=== PATIENT | female | born 1955 | race Caucasian/White ===

== ENCOUNTER → 2016-12-07 | Outpatient (CLI) | payer BC | LOC: GMAB 10:28 | PROVIDERS: ATTEND Family Medicine | DX: Z00.01 Encounter for general adult medical examination with abnormal findings (principal) ==

== ENCOUNTER 2017-04-06 05:46 | Day surgery (SDC) | payer BC ==
[2017-04-06] MEDS ORDERED: LACTATED RINGERS 1,000 ML ONE (06:14)
--- NOTE | 2017-04-06 10:18 | OP ---
DATE OF PROCEDURE: 04/06/17 PREOPERATIVE DIAGNOSIS: 1. Family history of colon cancer in her sister. 2. Previous colonoscopy was 2010. POSTOPERATIVE DIAGNOSIS: 1. Colonic polyp. 2. Internal hemorrhoids. 3. Diverticulosis. PROCEDURE: 1. Colonoscopy plus polypectomy. SURGEON: Atilio Seaman MD. COMPLICATIONS: None apparent. BLOOD LOSS: None. MEDICATIONS: Monitored anesthesia care. DESCRIPTION OF PROCEDURE: Informed consent was obtained prior to sedation. The preprocedure cardiopulmonary assessment was satisfactory. The patient was placed in the left lateral decubitus position and was sedated. A digital rectal exam was unremarkable. The tip of the Olympus colonoscope was inserted in the rectum and guided over to the cecum. The cecum was identified by locating the ileocecal valve and appendiceal orifice. Prep was good. The mucosa of the cecum, ascending colon, hepatic flexure, transverse colon, splenic flexure, descending colon and sigmoid colon was closely examined. Direct and retroflexed views of the rectum were obtained. The patient had a small rectal polyp that was removed with a cold snare and recovered. The patient has non-bleeding internal hemorrhoids. The patient has some sigmoid diverticula. Otherwise, the colonoscopy was urinalysis. RECOMMENDATIONS: 1. Followup polyp pathology. 2. Followup colonoscopy because of her family history is warranted in five years. #[id number] cc: Bebeto Preston MD MTDD
[2017-04-06] MEDS ORDERED: PROPOFOL 200 MG/20 ML VIAL IV ONE (11:00)
[2017-04-06 13:24] VITALS: BP 119/81
[2017-04-06 13:25] VITALS: TEMP 97.9; O2SAT 96
== END 2017-04-06 10:40 | disposition home or self-care (01) ==
LOC: AMB 05:46
PROVIDERS: ATTEND Internal Medicine Gastroenterology
DX: Z12.11 Encounter for screening for malignant neoplasm of colon (principal); K62.1 Rectal polyp; K57.30 Diverticulosis of large intestine without perforation or abscess without bleeding; K64.8 Other hemorrhoids; Z80.0 Family history of malignant neoplasm of digestive organs; I10 Essential (primary) hypertension; E11.9 Type 2 diabetes mellitus without complications; Z79.899 Other long term (current) drug therapy
CPT/HCPCS: 00810; 36416; 45385; 82948; J3490; J7120

== ENCOUNTER → 2017-07-04 | Outpatient (CLI) | payer BC | END | disposition home or self-care (01) | LOC: GMAB 14:52 | PROVIDERS: ATTEND Family Medicine | DX: L02.91 Cutaneous abscess, unspecified (principal) ==

== ENCOUNTER → 2018-03-15 | Outpatient (CLI) | payer BC | LOC: GMAB 16:50 | PROVIDERS: ATTEND Family Medicine | DX: M79.1 Myalgia (principal); E03.9 Hypothyroidism, unspecified ==

== ENCOUNTER → 2018-07-13 | Outpatient (CLI) | payer BC | LOC: GMAE 11:41 | PROVIDERS: ATTEND Family Medicine | DX: E03.9 Hypothyroidism, unspecified (principal) ==

== ENCOUNTER 2019-02-04 09:09 | Emergency (ER) | payer BC, OTHER ==
[2019-02-04] MEDS ORDERED: ASPIRIN TABLET 325 MG TAB PO ONE (09:24)
[2019-02-04] MEDS ORDERED: HYDROcodone 5MG/APAP 325MG 1 EA TAB PO ONE (09:25)
[2019-02-04] MEDS ORDERED: ALUMINUM & MAGNESIUM HYDROXIDE 30 ML UD PO ONE (09:25)
[2019-02-04] MEDS ORDERED: SODIUM CHLORIDE 0.9% 1000ML 1,000 ML IVS ONE (10:23)
[2019-02-04] MEDS ORDERED: ACETYLCYSTEIN 20 % 6,000 MG/30 ML VIAL PO ONE (10:23)
--- NOTE | 2019-02-04 11:17 | CT ---
PROCEDURE: CT Angiography Chest With Intravenous Contrast CLINICAL INDICATION: The patient is 63 years old and is Female; fever, tachycardia, chest pain, ddimer TECHNIQUE: Axial computed tomographic angiography images of the chest with intravenous contrast using pulmonary embolism protocol. Sagittal and coronal reformatted images were created and reviewed. Sagittal and coronal reformatted images were created and reviewed. This CT exam was performed using one or more of the following dose reduction techniques: automated exposure control, adjustment of the mA and/or kV according to patient size, and/or use of iterative reconstruction technique. MIP reconstructed images were created and reviewed. COMPARISON: Chest x-ray from earlier today. FINDINGS: PULMONARY ARTERIES: There is no evidence of pulmonary artery embolus. The contrast bolus is well timed for this evaluation. AORTA: The thoracic aorta is within normal limits without aneurysm or dissection. GREAT VESSELS OF AORTIC ARCH: Great vessels are unremarkable in appearance. LEFT vertebral artery arises directly from the arch. There is a bovine branch pattern. LUNGS: No focal consolidation or pulmonary nodules are seen. Minimal dependent bibasilar atelectasis. PLEURAL SPACE: No pleural effusions identified. No pneumothorax. HEART: No pericardial effusion is identified. Heart is enlarged in size. No evidence of RV dysfunction. BONES/JOINTS: There are degenerative changes of the spine identified. No acute fracture. No dislocation. SOFT TISSUES: Unremarkable. LYMPH NODES: There is no mediastinal, hilar or axillary lymphadenopathy. LIVER: Hepatic steatosis is identified. No intrahepatic lesions are noted. GALLBLADDER AND BILE DUCTS: There is a large lamellated gallstone partially imaged in the gallbladder lumen. UPPER ABDOMEN: There is elevation of the RIGHT hemidiaphragm. IMPRESSION: There is no evidence of pulmonary artery embolus. Electronically signed by: Eusebio Mcgill MD 02/04/2019 11:14 AM CDT
[2019-02-04] MEDS ORDERED: PIPERACILLIN/TAZOBACTAM 3.375 GM in SODIUM CHLORIDE 0.9% 100ML 100 ML IVPB ONE (11:36)
[2019-02-04] MEDS ORDERED: predniSONE 20 MG TAB PO ONE (11:36)
[2019-02-04] MEDS ORDERED: PIPERACILLIN/TAZOBACTAM 3.375 GM VIAL IVPB ONE (11:40)
[2019-02-04] MEDS ORDERED: SODIUM CHLORIDE 0.9% 100ML 100 ML IVPB ONE (11:40)
--- NOTE | 2019-02-04 13:52 | ED.PDOC ---
History of Present Illness - General Chief Complaint: Chest Pain/[place] Stated Complaint: Chest discomfort Time Seen by Provider: 02/04/19 09:15 Source: patient Exam Limitations: no limitations - History of Present Illness Initial Comments: the patient is a 63-year-old female presenting to emergency room secondary to mild left parasternal chest pain for the last 16 hours. It is worse with taking a deep breath and with movement. The patient actually has a fever upon arrival that she did not know that she had. No shortness of breath and no cough. No history of any coronary artery disease. It is not really worse with physical activity otherwise. No syncope or near syncope. She does have a history of some form of a polyarticular arthritis along with type 2 diab etes and possibly some early psoriatic changes. She has not currently see a doctor regularly due to lack of funding. Chest discomfort is mild. It is not worse with palpation. I see no bruising or deformity.the patient does have an elevated heart rate but reports that she has had this for many years. No lower extremity swelling or pain. No history of any pulmonary emboli or DVTs in the past. Timing/Duration: other - 16 hours Improving Factors: immobilization Worsening Factors: movement Associated Symptoms: chest pain Allergies/Adverse Reactions: Allergies NO KNOWN ALLERGY Allergy (Verified 02/04/19 09:16) Home Medications: Ambulatory Orders Amlodipine Besylate 5 mg PO BEDTIME 03/31/17 Metformin HCl 500 mg PO DAILY@0700 03/31/17 Thyroid [Breeding Technician Thyroid 30] 30 mg PO DAILY@0700 03/31/17 Amoxicillin & Pot Clavulanate [Augmentin Tab] 875 mg PO BID #14 tab 02/04/19 [place]-3 Fatty Acids [Fish Oil] 1,200 mg PO DAILY 02/04/19 predniSONE [Prednisone] 20 mg PO DAILY #3 tab 02/04/19 Review of Systems - Review of Systems Constitutional: States: no symptoms reported EENTM: States: no symptoms reported Respiratory: States: no symptoms reported Cardiology: States: chest pain Gastrointestinal/Abdominal: States: no symptoms reported Genitourinary: States: no symptoms reported Musculoskeletal: States: no symptoms reported Skin: States: no symptoms reported Neurological: States: no symptoms reported Endocrine: States: no symptoms reported All other Systems: No Change from Baseline Past Medical History (General) - Patient Medical History Hx Stroke: No Hx Congestive Heart Failure: No Hx Hypertension: Yes Hx Thyroid Disease: Yes Hx Diabetes: Yes Hx Gastroesophageal Reflux: - Hx diverticulitis Hx MRSA: Yes MRSA Source:: Blood Surgical History: other - Vaccination History Hx Influenza Vaccination: No Hx Pneumococcal Vaccination: Yes - 2018 - Social History Hx Tobacco Use: Yes - Quit around 1979 Hx Alcohol Use: No Family Medical History - Family History Mother Living Status: Age at (years of age): 86 Cause of : [place] Hx Family Diabetes: Yes Hx Family;Other: Diverticulosis Physical Exam - Physical Exam General Appearance: Alert, Comfortable, No apparent distress Eye Exam: bilateral normal Ears, Nose, Throat: hearing grossly normal, normal ENT inspection, normal pharynx Neck: full range of motion, supple Respiratory: lungs clear, normal breath sounds, no respiratory distress, no accessory muscle use, other - chest pain is made worse with twisting and turning as well as some deep breaths Cardiovascular/Chest: normal peripheral pulses, no edema, tachycardia - sinus Peripheral Pulses: radial,right: 2+, radial,left: 2+, dorsalis pedis,right: 2+, dorsalis pedis,left: 2+ Gastrointestinal/Abdominal: non tender, soft Rectal Exam: deferred Back Exam: no CVA tenderness, no vertebral tenderness Extremity: non-tender, normal inspection, no pedal edema, normal capillary refill Neurologic: staff training and development manager II-XII nml as tested, alert, normal mood/affect, oriented x 3 Skin Exam: normal color Comments: Vital Signs - 24 hr 02/04/19 02/04/19 02/04/19 09:09 09:40 10:00 Temperature 100.5 F H Pulse Rate [ 129 H 114 H 108 H Apical] Respiratory 20 16 20 Rate Blood Pressure 123/90 141/85 126/75 [Left Arm] O2 Sat by Pulse 96 96 94 L Oximetry 02/04/19 02/04/19 02/04/19 11:00 12:00 13:00 Temperature 98.2 F Pulse Rate [ 89 87 84 Apical] Respiratory 16 16 18 Rate Blood Pressure 130/81 117/76 127/74 [Left Arm] O2 Sat by Pulse 94 L 92 L 97 Oximetry 02/04/19 09:16 Telemetry .CONTINUOUS 02/04/19 09:17 Chest,2 Views [RAD] Stat appears benign. CT angiogram of the chest shows no evidence of any pulmonary embolus or large pneumonia. No pneumothorax. Chronic findings otherwise. 02/04/19 09:30 EKG STAT shows sinus tachycardia at 123 bpm. There is mild left axis deviation. No definite ST segment or T-wave changes indicative of current ischemia. Borderline QT interval. Normal R-wave progression. No previous EKGs to compare to. Laboratory Results - last 24 hr 02/04/19 02/04/19 02/04/19 09:23 09:23 09:23 WBC 11.4 H RBC 4.85 Hgb 14.1 Hct 42.6 MCV 87.8 MCH 29.2 MCHC 33.2 RDW 14.1 Plt Count 367 MPV 8.6 Absolute Neuts (auto) 9.10 H Absolute Lymphs (auto) 1.40 Absolute Monos (auto) 0.70 Absolute Eos (auto) 0.10 Absolute Basos (auto) 0.10 Neutrophils % 80.1 H Lymphocytes % 11.9 L Monocytes % 6.5 Eosinophils % 0.6 L Basophils % 0.9 ESR PT 9.2 INR 0.92 PTT (SP) 24.5 D-Dimer, Quantitative 1.64 H* Sodium 137 Potassium 4.1 Chloride 103 Carbon Dioxide 19 L Anion Gap 19.1 H BUN 14 Creatinine 0.60 BUN/Creatinine Ratio 23.3 H Random Glucose 223 H Serum Osmolality 281.2 Lactic Acid Calcium 8.9 Magnesium Total Bilirubin 0.6 AST 26 ALT 20 Alkaline Phosphatase 60 Creatine Kinase 29 CK-MB (CK-2) 0.6 CK-MB (CK-2) % Not Reportable Troponin I < 0.02 B-Natriuretic Peptide 36.7 Serum Total Protein 6.9 Albumin 4.0 Globulin 2.9 Albumin/Globulin Ratio 1.4 TSH Urine Color Urine Appearance Urine pH Ur Specific [place] Urine Protein Urine Glucose (UA) Urine Ketones Urine Blood Urine Nitrite Urine Bilirubin Urine Urobilinogen Ur Leukocyte Esterase Urine RBC Urine WBC Ur Epithelial Cells Urine Bacteria 02/04/19 02/04/19 02/04/19 09:23 09:26 09:40 WBC RBC Hgb Hct MCV MCH MCHC RDW Plt Count MPV Absolute Neuts (auto) Absolute Lymphs (auto) Absolute Monos (auto) Absolute Eos (auto) Absolute Basos (auto) Neutrophils % Lymphocytes % Monocytes % Eosinophils % Basophils % ESR PT INR PTT (SP) D-Dimer, Quantitative Sodium Potassium Chloride Carbon Dioxide Anion Gap BUN Creatinine BUN/Creatinine Ratio Random Glucose Serum Osmolality Lactic Acid 3.0 H* Calcium Magnesium 1.9 Total Bilirubin AST ALT Alkaline Phosphatase Creatine Kinase CK-MB (CK-2) CK-MB (CK-2) % Troponin I B-Natriuretic Peptide Serum Total Protein Albumin Globulin Albumin/Globulin Ratio TSH 2.10 Urine Color Yellow Urine Appearance Clear Urine pH 6.0 Ur Specific [place] >= 1.030 Urine Protein 30 Urine Glucose (UA) Negative Urine Ketones Negative Urine Blood Negative Urine Nitrite Negative Urine Bilirubin Negative Urine Urobilinogen 0.2 Ur Leukocyte Esterase Small H Urine RBC 0 Urine WBC 3-5 H Ur Epithelial Cells 10-20 Urine Bacteria Rare 02/04/19 02/04/19 12:38 12:38 WBC RBC Hgb Hct MCV MCH MCHC RDW Plt Count MPV Absolute Neuts (auto) Absolute Lymphs (auto) Absolute Monos (auto) Absolute Eos (auto) Absolute Basos (auto) Neutrophils % Lymphocytes % Monocytes % Eosinophils % Basophils % ESR 20 PT INR PTT (SP) D-Dimer, Quantitative Sodium Potassium Chloride Carbon Dioxide Anion Gap BUN Creatinine BUN/Creatinine Ratio Random Glucose Serum Osmolality Lactic Acid Calcium Magnesium Total Bilirubin AST ALT Alkaline Phosphatase Creatine Kinase CK-MB (CK-2) CK-MB (CK-2) % Troponin I < 0.02 B-Natriuretic Peptide Serum Total Protein Albumin Globulin Albumin/Globulin Ratio TSH Urine Color Urine Appearance Urine pH Ur Specific [place] Urine Protein Urine Glucose (UA) Urine Ketones Urine Blood Urine Nitrite Urine Bilirubin Urine Urobilinogen Ur Leukocyte Esterase Urine RBC Urine WBC Ur Epithelial Cells Urine Bacteria Progress - Progress Progress: 02/04/19 13:57 the patient is a 63-year-old female presenting to the emergency room with left parasternal chest pain that is made worse with movement and deep breathing along with a fever. Most likely diagnosis here is pleuritis from a beginning infection, whether viral or bacterial. No large infection was found. A blood culture has been done. She was given a dose of Zosyn is going to be placed on Augmentin twice daily for the next 7 days. The patient did receive a CT angiogram of the chest secondary to the fever, tachycardia and elevated d- dimer. Angiogram showed no evidence of any acute vascular pathology. No evidence of any large lung pathology either. She does have a mild fatty liver and a long-standing gallstone as incidental findings. I'm going to place her on 3 days only on low-dose prednisone to help reduce inflammation and discomfort. She can additionally take [id number] aspirin daily for the next couple of weeks with food to help reduce inflammation. I do recommend that she follow-up with her primary care doctor next week. The patient does incidentally have a high resting heart rate and she can discuss whether or not to try to control that with medications with her primary care doctor at her follow-up appointment. She does have a very mild lactic acidosis and has received some IV fluids for that reason as well as renal protective purposes. She does need to monitor her blood sugars as they were moderately elevated here today. Continue diabetes medications otherwise. ER warnings were given for any worsening. Departure - Departure Clinical Impression: Atypical chest pain, Pleuritis, Lactic acidosis, Sinus tachycardia Disposition: Discharge to Home or Self Care Condition: Fair Departure Forms: ED Discharge - Pt. Copy, Patient Portal Self Enrollment Instructions: DI for Chest Pain, Pleuritic Chest Pain, Sinus Tachycardia (DC) Diet: bland diet Activity: increase activity as tolerated Referrals: BRADLEY BORREGO MD [Primary Care Provider] - 1-5 Days Prescriptions: Amoxicillin & Pot Clavulanate [Augmentin Tab] 875 mg PO BID #14 tab predniSONE [Prednisone] 20 mg PO DAILY #3 tab Home Medications: Ambulatory Orders Amlodipine Besylate 5 mg PO BEDTIME 03/31/17 Metformin HCl 500 mg PO DAILY@0700 03/31/17 Thyroid [Breeding Technician Thyroid 30] 30 mg PO DAILY@0700 03/31/17 Amoxicillin & Pot Clavulanate [Augmentin Tab] 875 mg PO BID #14 tab 02/04/19 [place]-3 Fatty Acids [Fish Oil] 1,200 mg PO DAILY 02/04/19 predniSONE [Prednisone] 20 mg PO DAILY #3 tab 02/04/19 Additional Instructions: the patient is a 63-year-old female presenting to the emergency room with left parasternal chest pain that is made worse with movement and deep breathing along with a fever. Most likely diagnosis here is pleuritis from a beginning infection, whether viral or bacterial. No large infection was found. A blood culture has been done. She was given a dose of Zosyn is going to be placed on Augmentin twice daily for the next 7 days. The patient did receive a CT angiogram of the chest secondary to the fever, tachycardia and elevated d- dimer. Angiogram showed no evidence of any acute vascular pathology. No evidence of any large lung pathology either. She does have a mild fatty liver and a long-standing gallstone as incidental findings. I'm going to place her on 3 days only on low-dose prednisone to help reduce inflammation and discomfort. She can additionally take [id number] aspirin daily for the next couple of weeks with food to help reduce inflammation. I do recommend that she follow-up with her primary care doctor next week. The patient does incidentally have a high resting heart rate and she can discuss whether or not to try to control that with medications with her primary care doctor at her follow-up appointment. She does have a very mild lactic acidosis and has received some IV fluids for that reason as well as renal protective purposes. She does need to monitor her blood sugars as they were moderately elevated here today. Continue diabetes medications otherwise. ER warnings were given for any worsening.
[2019-02-04 14:07] VITALS: BP 124/78; O2SAT 94
[2019-02-04 14:21] VITALS: TEMP 99.1
== END 2019-02-04 14:21 | disposition home or self-care (01) ==
LOC: ER 09:09
DX: R07.89 Other chest pain (principal); R09.1 Pleurisy; E87.2 Acidosis; R00.0 Tachycardia, unspecified; E11.9 Type 2 diabetes mellitus without complications; I10 Essential (primary) hypertension; E07.9 Disorder of thyroid, unspecified; Z79.84 Long term (current) use of oral hypoglycemic drugs; Z79.899 Other long term (current) drug therapy; Z87.891 Personal history of nicotine dependence
CPT/HCPCS: 36415; 71046; 71275; 80053; 81001; 82550; 82553; 83605; 83735; 83880; 84443; 84484; 85025; 85379; 85610; 85651; 85730; 87040; 87086; 93005; J2543; J7030; J7050; J7512

== ENCOUNTER → 2019-10-10 | Outpatient (CLI) | payer OTHER, MEDICARE | LOC: GMAE 10:37 | PROVIDERS: ATTEND Family Medicine | DX: E03.9 Hypothyroidism, unspecified (principal); E11.9 Type 2 diabetes mellitus without complications; I10 Essential (primary) hypertension; E78.2 Mixed hyperlipidemia ==

== ENCOUNTER 2019-11-01 10:05 | Emergency (ER) | payer MEDICARE, OTHER ==
[2019-11-01 11:01] VITALS: TEMP 98.5
--- NOTE | 2019-11-01 11:20 | RAD ---
EXAM DESCRIPTION: Lumbar Spine 3 Views CLINICAL HISTORY: 64 years Female, low bakc pain on the right 5 days COMPARISON: None. Findings: Three views Cholelithiasis. Atherosclerotic plaque in the abdominal aorta. Osteopenia. Mild rightward curvature of the mid thoracic spine apex at L3. Five nonrib-bearing vertebral bodies with transitional features of S1. The level lumbar spondylosis with disc space narrowing, marginal osteophytosis and facet hypertrophy most pronounced at L5/S1. No acute fracture or subluxation identified. IMPRESSION: Multilevel lumbar spondylosis. No acute fracture or subluxation. Electronically signed by: Amrit Marin MD 11/01/2019 11:18 AM [facility]
--- NOTE | 2019-11-01 11:32 | RAD ---
EXAM DESCRIPTION: Chest,2 Views CLINICAL HISTORY: 64 years Female, hypoxia at rest COMPARISON: 02/04/2019. TECHNIQUE: 2 view radiographs of the chest. IMPRESSION: Stable size cardiac silhouette. Partially calcified aorta. Mild elevation right hemidiaphragm. No lobar consolidation. No pleural effusion or pneumothorax. Thoracic spondylosis. No significant interval change from 02/04/2019. Electronically signed by: Juan F Law MD 11/01/2019 11:31 AM [facility]
[2019-11-01] MEDS ORDERED: HYDROcodone 7.5MG/APAP 325MG 1 EA TAB PO ONE (12:55)
--- NOTE | 2019-11-01 14:29 | CT ---
EXAM DESCRIPTION: CTA Chest CLINICAL HISTORY: 64 years, Female, hypoxia, dizziness, eleve ddimer COMPARISON: CT chest dated February 04, 2019. TECHNIQUE: CT pulmonary angiography is performed with thin-section multi detector technique during rapid bolus administration of IV contrast media. Multiplanar reformatted images are reviewed along with source images and maximum intensity projection three dimensional images which were created on a separate dedicated workstation and are stored in the patient's medical record. FINDINGS: The study is significantly limited to evaluate for pulmonary embolism secondary to timing of the bolus. No central or major vessel pulmonary embolus, however subtle filling defects in the left lower lobe pulmonary artery could be likely to nonopacification by the contrast secondary to timing of the bolus, although acute PE cannot be completely excluded. Given the nonopacification of the distal pulmonary vessels, small segmental or subsegmental PE cannot be completely excluded. The visualized thyroid gland appears grossly unremarkable. No enlarged axillary, supraclavicular, mediastinal or hilar lymphadenopathy. Mild cardiomegaly noted. Small pericardial effusion is seen. The aortic arch appears grossly unremarkable. Mild reflux of contrast is noted into the IVC, which could represent right heart strain. The tracheobronchial tree is patent. Review of the lung windows demonstrate no acute consolidation or pleural effusion. Bibasilar atelectatic changes are seen. No suspicious nodules or abnormal mass lesions identified. The esophagus appears grossly normal throughout its length. The visualized upper abdomen demonstrates diffuse fatty infiltration of the liver. The gallbladder demonstrates multiple large partially calcified lesions are noted within the gallbladder lumen likely represents gallstones. No evidence of pericholecystic fluid or fat stranding. The largest stone measuring up to 2.4 cm. Review of the bone windows demonstrate no acute osseous abnormality. IMPRESSION: 1. The study is significantly limited secondary to inadequate timing of the bolus with nonopacification of segmental and subsegmental pulmonary arteries. 2. No central or major vessel pulmonary embolus. A subtle filling defect in the left lower lobe pulmonary artery could be likely from nonopacification, however acute PE cannot be completely excluded. Small segmental or subsegmental PE also cannot be excluded. 3. Mild cardiomegaly, small pericardial effusion and mild reflux of contrast into the IVC could represent right heart strain. Clinical correlation is recommended. 4. No acute consolidation or pleural effusion. 5. No suspicious nodules or abnormal mass lesions. 6. Cholelithiasis with no evidence of acute cholecystitis. 7. Diffuse fatty liver. This exam was performed according to our departmental dose-optimization program, which includes automated exposure control, adjustment of the mA and/or kV according to patient size and/or use of iterative reconstruction technique. Electronically signed by: Robert Cao MD 11/01/2019 2:27 PM [facility]
--- NOTE | 2019-11-01 15:41 | US ---
EXAM DESCRIPTION: Venous,Lower Extremity LT CLINICAL HISTORY: 64 years Female, elevated ddimer, hypoxia COMPARISON: None. TECHNIQUE: Multiple grayscale, color flow, and spectral Doppler images of the left lower extremity veins obtained. FINDINGS: Patent without thrombosis through the visualized lower extremity veins. Soft tissues unremarkable. IMPRESSION: 1. Negative ultrasound for deep vein thrombosis. Electronically signed by: Juan F Law MD 11/01/2019 3:40 PM [facility]
--- NOTE | 2019-11-01 15:42 | US ---
EXAM DESCRIPTION: Venous,Lower Extremity RT CLINICAL HISTORY: 64 years Female, elevated ddimer, hypoxia COMPARISON: None. TECHNIQUE: Multiple grayscale, color flow, and spectral Doppler images of the right lower extremity veins obtained. FINDINGS: Patent without thrombosis through the visualized lower extremity veins. Soft tissues unremarkable. IMPRESSION: 1. Negative ultrasound for deep vein thrombosis. Electronically signed by: Juan F Law MD 11/01/2019 3:40 PM [facility]
[2019-11-01 15:51] VITALS: BP 144/105; O2SAT 95
--- NOTE | 2019-11-01 16:00 | ED.PDOC ---
History of Present Illness - General Chief Complaint: Back Pain or Injury Time Seen by Provider: 11/01/19 10:07 Source: patient Exam Limitations: no limitations - History of Present Illness Initial Comments: the patient is a 64-year-old female presenting to emergency room secondary to right low back pain with mild intermittent sciatica. No recent trauma. She has been trying to do decompression exercises without much relief. Pain is over the right lateral aspect of the L4-5 S1 area. There is palpable muscle spasm.incidentally found the patient is having some borderline low oxygen saturations with lying back. Oxygen saturations however around 90% without supplemental oxygen. No chest pain, cough or shortness of breath.no history of any interstitial lung disease, COPD, asthma or pulmonary emboli. Timing/Duration: 1 week Severity: moderate Improving Factors: immobilization Worsening Factors: movement Associated Symptoms: denies symptoms Allergies/Adverse Reactions: Allergies NO KNOWN ALLERGY Allergy (Verified 02/04/19 09:16) Home Medications: Ambulatory Orders Amlodipine Besylate 5 mg PO BEDTIME 03/31/17 Metformin HCl [Metformin Hydrochloride] 500 mg PO DAILY@0700 03/31/17 Thyroid [Press Manager Thyroid 30] 30 mg PO DAILY@0700 03/31/17 Amoxicillin & Pot Clavulanate [Augmentin Tab] 875 mg PO BID #14 tab 02/04/19 [place]-3 Fatty Acids [Fish Oil] 1,200 mg PO DAILY 02/04/19 predniSONE [Prednisone] 20 mg PO DAILY #3 tab 02/04/19 Review of Systems - Review of Systems Constitutional: States: no symptoms reported EENTM: States: no symptoms reported Respiratory: States: no symptoms reported Cardiology: States: no symptoms reported Gastrointestinal/Abdominal: States: no symptoms reported Genitourinary: States: no symptoms reported Musculoskeletal: States: back pain Skin: States: no symptoms reported Neurological: States: see HPI Endocrine: States: no symptoms reported Hematologic/Lymphatic: States: no symptoms reported All other Systems: No Change from Baseline Past Medical History (General) - Patient Medical History Hx Stroke: No Hx Congestive Heart Failure: No Hx Hypertension: Yes Hx Thyroid Disease: Yes Hx Diabetes: Yes Hx Gastroesophageal Reflux: - Hx diverticulitis Hx MRSA: Yes MRSA Source:: Blood - Vaccination History Hx Influenza Vaccination: No Hx Pneumococcal Vaccination: Yes - 2018 - Social History Hx Tobacco Use: Yes - Quit around 1979 Hx Alcohol Use: No Family Medical History - Family History Mother Living Status: Age at (years of age): 86 Cause of : [place] Hx Family Diabetes: Yes Hx Family;Other: Diverticulosis Physical Exam - Physical Exam General Appearance: Alert, Comfortable, No apparent distress Eye Exam: bilateral normal Ears, Nose, Throat: hearing grossly normal, normal ENT inspection Neck: full range of motion, supple Respiratory: lungs clear, normal breath sounds, no respiratory distress, no accessory muscle use Cardiovascular/Chest: normal peripheral pulses, regular rate, rhythm, no edema Peripheral Pulses: radial,right: 2+, radial,left: 2+, dorsalis pedis,right: 2+, dorsalis pedis,left: 2+ Gastrointestinal/Abdominal: non tender, soft Rectal Exam: deferred Back Exam: muscle spasm, other - see history of present illness Extremity: normal range of motion, non-tender, normal inspection, no pedal e travis, normal capillary refill Neurologic: cargo service supervisor II-XII nml as tested, alert, normal mood/affect, oriented x 3 Skin Exam: normal color Comments: Vital Signs - 24 hr 11/01/19 11/01/19 11/01/19 10:11 10:33 10:35 Temperature 98.5 F Pulse Rate [ 78 83 95 H left brachial] Respiratory 20 20 20 Rate Blood Pressure 136/78 139/97 146/103 [left brachial] O2 Sat by Pulse 95 95 93 L Oximetry 11/01/19 11/01/19 11/01/19 10:36 11:30 12:30 Temperature Pulse Rate [ 89 84 84 left brachial] Respiratory 20 20 20 Rate Blood Pressure 146/103 137/96 129/91 [left brachial] O2 Sat by Pulse 96 95 96 Oximetry 11/01/19 11/01/19 11/01/19 13:30 14:30 15:30 Temperature Pulse Rate [ 86 78 83 left brachial] Respiratory 20 18 16 Rate Blood Pressure 144/98 145/88 144/105 [left brachial] O2 Sat by Pulse 96 96 95 Oximetry Progress - Progress Progress: 11/01/19 16:03 the patient is a 64-year-old female presenting to the emergency room secondary to right lower back pain that appears to be due to DJD of the lumbar spine with associated mild nerve impingement and sciatica. The patient does need to continue her decompression exercises. She is being written for 5 days of prednisone as well as Flexeril and tramadol for as needed use. Topical heat and stretching will help reduce symptoms as well. Additionally the patient was found to have some borderline low oxygen levels from lying flat. The source of this is not entirely certain. The patient had a CT angiogram of the chest which failed to show any significant pulmonary emboli though the timing of the contrast bolus was a little bit off. Due to the inconclusive nature of the CT scan, bilateral lower extremity venous Dopplers were done which also failed to show any evidence of DVT. She does have an elevated d-dimer. There is some mild evidence of right heart strain on the CT scan. I do recommend that she discuss with her primary care doctor and likely set up an echocardiogram in the coming weeks to see if there is actually some right heart strain that needs to be dealt with. if there is still any concern, then a repeat CT angiogram can be done in a couple of weeks when her kidneys have had some time to rest. ER warnings were given for any acute worsening. As incidental findings on the CT scan, she does have gallstones and a fatty liver. These can be followed up with her primary care doctor as well. follow-up with primary care doctor early next week. ER warnings were given for any acute worsening. liane laura [phone] - Results/Orders Results/Orders: chest x-ray shows very mild cardiomegaly X-ray lumbar spine shows degenerative changes of the lower lumbar spine. No acute pathology. CT angiogram of the chest shows a poorly timed contrast bolus. There is no definitive proximal or large pulmonary emboli. Unable to entirely exclude a left lower pulmonary emboli but this is felt to be most likely a defect due to contrast timing. There is a small pericardial effusion. Possibly indicative of right heart strain. She does have gallstones in the gallbladder. She does have a fatty liver. bilateral lower extremity venous Dopplers are negative for any evidence of any DVT. Laboratory Tests 11/01/19 11/01/19 11/01/19 10:20 11:36 11:36 WBC 8.0 RBC 4.69 Hgb 13.5 Hct 40.0 MCV 85.3 MCH 28.7 MCHC 33.7 RDW 14.6 H Plt Count 465 H MPV 8.1 Absolute Neuts (auto) 5.90 Absolute Lymphs (auto) 1.40 Absolute Monos (auto) 0.30 Absolute Eos (auto) 0.20 Absolute Basos (auto) 0.00 Neutrophils % 74.2 Lymphocytes % 17.9 L Monocytes % 4.3 Eosinophils % 3.1 Basophils % 0.5 PT INR PTT (SP) D-Dimer, Quantitative Sodium 133 L Potassium 3.9 Chloride 101 Carbon Dioxide 21 Anion Gap 14.9 BUN 16 Creatinine 0.54 L BUN/Creatinine Ratio 29.6 H POC Glucose 173 H Random Glucose 169 H Serum Osmolality 271.5 L Calcium 9.4 Total Bilirubin 0.6 AST 16 ALT 11 Alkaline Phosphatase 55 Creatine Kinase 23 L CK-MB (CK-2) 0.4 CK-MB (CK-2) % Not Reportable Troponin I < 0.02 B-Natriuretic Peptide 13.5 Serum Total Protein 7.1 Albumin 3.7 Globulin 3.4 Albumin/Globulin Ratio 1.1 TSH Urine Color Urine Appearance Urine pH Ur Specific [place] Urine Protein Urine Glucose (UA) Urine Ketones Urine Blood Urine Nitrite Urine Bilirubin Urine Urobilinogen Ur Leukocyte Esterase Urine RBC Urine WBC Ur Epithelial Cells Urine Bacteria Urine Mucus 11/01/19 11/01/19 11/01/19 11:36 11:36 12:46 WBC RBC Hgb Hct MCV MCH MCHC RDW Plt Count MPV Absolute Neuts (auto) Absolute Lymphs (auto) Absolute Monos (auto) Absolute Eos (auto) Absolute Basos (auto) Neutrophils % Lymphocytes % Monocytes % Eosinophils % Basophils % PT 9.4 INR 0.94 PTT (SP) 25.4 D-Dimer, Quantitative 4.36 H* Sodium Potassium Chloride Carbon Dioxide Anion Gap BUN Creatinine BUN/Creatinine Ratio POC Glucose Random Glucose Serum Osmolality Calcium Total Bilirubin AST ALT Alkaline Phosphatase Creatine Kinase CK-MB (CK-2) CK-MB (CK-2) % Troponin I B-Natriuretic Peptide Serum Total Protein Albumin Globulin Albumin/Globulin Ratio TSH 4.30 Urine Color Yellow Urine Appearance Clear Urine pH 5.5 Ur Specific [place] 1.020 Urine Protein Negative Urine Glucose (UA) Negative Urine Ketones Trace Urine Blood Negative Urine Nitrite Negative Urine Bilirubin Negative Urine Urobilinogen 0.2 Ur Leukocyte Esterase Negative Urine RBC 0 Urine WBC 1-3 Ur Epithelial Cells 5-10 Urine Bacteria Rare Urine Mucus Trace Departure - Departure Clinical Impression: Elevated d-dimer Low back pain Qualifiers: Chronicity: acute Back pain laterality: right Sciatica presence: with sciatica Sciatica laterality: sciatica of right side Qualified Code(s): M54.41 - Lumbago with sciatica, right side Disposition: Discharge to Home or Self Care Condition: Fair Departure Forms: ED Discharge - Pt. Copy, Patient Portal Self Enrollment Instructions: DI for Back Pain With Sciatica Diet: regular diet Activity: increase activity as tolerated Referrals: BRADLEY BORREGO MD [Primary Care Provider] - 1-2 Weeks Home Medications: Ambulatory Orders Amlodipine Besylate 5 mg PO BEDTIME 03/31/17 Metformin HCl [Metformin Hydrochloride] 500 mg PO DAILY@0703/31/17 Thyroid [Press Manager Thyroid 30] 30 mg PO DAILY@69903/31/17 Amoxicillin & Pot Clavulanate [Augmentin Tab] 875 mg PO BID #14 tab 02/04/19 [place]-3 Fatty Acids [Fish Oil] 1,200 mg PO DAILY 02/04/19 predniSONE [Prednisone] 20 mg PO DAILY #3 tab 02/04/19 Additional Instructions: the patient is a 64-year-old female presenting to the emergency room secondary to right lower back pain that appears to be due to DJD of the lumbar spine with associated mild nerve impingement and sciatica. The patient does need to continue her decompression exercises. She is being written for 5 days of prednisone as well as Flexeril and tramadol for as needed use. Topical heat and stretching will help reduce symptoms as well. Additionally the patient was found to have some borderline low oxygen levels from lying flat. The source of this is not entirely certain. The patient had a CT angiogram of the chest which failed to show any significant pulmonary emboli though the timing of the contrast bolus was a little bit off. Due to the inconclusive nature of the CT scan, bilateral lower extremity venous Dopplers were done which also failed to show any evidence of DVT. She does have an elevated d-dimer. There is some mild evidence of right heart strain on the CT scan. I do recommend that she discuss with her primary care doctor and likely set up an echocardiogram in the coming weeks to see if there is actually some right heart strain that needs to be dealt with. if there is still any concern, then a repeat CT angiogram can be done in a couple of weeks when her kidneys have had some time to rest. ER warnings were given for any acute worsening. As incidental findings on the CT scan, she does have gallstones and a fatty liver. These can be followed up with her primary care doctor as well. follow-up with primary care doctor early next week. ER warnings were given for any acute worsening.
== END 2019-11-01 16:15 | disposition home or self-care (01) ==
LOC: ER 10:05
DX: M54.41 Lumbago with sciatica, right side (principal); R79.89 Other specified abnormal findings of blood chemistry; I45.10 Unspecified right bundle-branch block; M47.817 Spondylosis without myelopathy or radiculopathy, lumbosacral region; I10 Essential (primary) hypertension; E07.9 Disorder of thyroid, unspecified; E11.9 Type 2 diabetes mellitus without complications; Z87.891 Personal history of nicotine dependence; Z79.899 Other long term (current) drug therapy; Z79.84 Long term (current) use of oral hypoglycemic drugs

== ENCOUNTER → 2019-11-13 | Outpatient (CLI) | payer MEDICARE, OTHER ==
--- NOTE | 2019-11-19 15:10 | MAM ---
EXAM DESCRIPTION: 3D Screening BILATERAL : Digital Mammography. CLINICAL HISTORY: 64 years Female ANNUAL SCREENING . No complaints or personal history of breast cancer. Remote family history of breast cancer. Menarche age 13. Childbirth age 25. Menopause age 47. HRT less than 5 years ago. Benign left breast biopsy. Lifetime risk of developing breast cancer (Tyrer-Cuzick model)(%): 8.0. COMPARISON: 2-D digital screening bilateral mammography February 2016. No prior reports available. TECHNIQUE: Bilateral CC and MLO projection full-field images, digital tomosynthesis mammographic technique. Bilateral digital 2-D full-field MLO images. CAD not available for tomosynthesis or 2-D images. FINDINGS: The breast parenchymal density pattern is: Scattered areas of fibroglandular density. No skin thickening or nipple retraction. Bilateral groups of microcalcifications associated with fibroglandular tissues. Bilateral vascular calcifications. Focal asymmetry in the posterior lateral right breast posterior third associated with microcalcifications slightly larger since the prior study. Groups of microcalcifications in the anterior to mid third of the left breast at the 7:00-8:00 position with a small group of microcalcifications at this site. IMPRESSION: BI-RADS CATEGORY: 0 - INCOMPLETE- Need additional imaging evaluation. FOLLOW-UP: Recall for additional imaging: Bilateral full-field LM 2-D and tomosynthesis images. CC and LM Spot magnification images region of interest anterior middle third left breast at 7:00-8:00. Bilateral directed breast ultrasound.. Written communication concerning the IMPRESSION and Follow-up, will be mailed to the patient and referring health care provider. Electronically signed by: Evaristo Vines MD 11/19/2019 3:08 PM [facility]
== END ==
LOC: MAMMO 11:34
PROVIDERS: ATTEND Family Medicine
DX: Z12.31 Encounter for screening mammogram for malignant neoplasm of breast (principal)

== ENCOUNTER → 2020-05-20 | Outpatient (CLI) | payer MEDICARE, OTHER | LOC: GMAE 16:57 | PROVIDERS: ATTEND Family Medicine | DX: M06.9 Rheumatoid arthritis, unspecified (principal) ==

== ENCOUNTER → 2020-08-04 | Outpatient (CLI) | payer MEDICARE, OTHER ==
--- NOTE | 2020-08-05 16:46 | MAM ---
EXAM DESCRIPTION: 3D Diagnostic, Right (accession [id number]), Breast,Right (accession [id number]): Ultrasound CLINICAL HISTORY: 65 yearsFemaleABNORMAL MAMMOGRAM . Focal asymmetry and heterogeneous microcalcifications upper and lower outer quadrant posterior third right breast. No complaints and no family history breast cancer. Menarche age 12. Childbirth age 25. Menopause age unknown. No HRT. Lifetime risk of developing breast cancer (Tyrer-Cuzick model)(%): 8.4. COMPARISON: Bilateral diagnostic digital breast tomosynthesis and targeted bilateral breast ultrasound January 06. Bilateral screening digital breast tomosynthesis November 13. TECHNIQUE: Left breast LM, CC, and MLO projection full-field images, digital tomosynthesis technique. Left breast 2-D digital full-field images: LM, CC, and MLO projections. CAD available for 2-D images.. Transcutaneous scanning of the bilateral breasts utilizing infante-scale and Doppler modes. Scanning performed by the calendering supervisor ; monitored by Dr. Vines. FINDINGS: The breast parenchymal density pattern is: Scattered areas of fibroglandular density. No skin thickening or nipple retraction microcalcifications are visualized at the 8:00 position of the middle third of the right breast 8 cm from the nipple, and at the 8:30 position of the middle to posterior third of the right breast 10 cm from the nipple. Stable since the prior study. No new focal, stellate mass or density, focal asymmetry , and no suspicious microcalcifications right breast. Ultrasound: Scanning of the regions of interest in the middle third and posterior third of the right breast. Mixture of fatty replacement tissue and fibroglandular tissue. No dominant focal mass, no fluid collection, no distinct cyst. No large calcifications. No overlying skin changes. IMPRESSION: BI-RADS CATEGORY: 3 - PROBABLY BENIGN. RECOMMENDATIONS: FOLLOW-UP: Short interval (6-month) bilateral digital breast tomosynthesis with diagnostic technique and directed right breast ultrasound. To coincide with bilateral digital breast tomosynthesis screening examination, one year from November 2019.. The FINDINGS and the FOLLOW-UP plan were reviewed in person with the patient after the examination. Written communication explaining the IMPRESSION and FOLLOW-UP will be mailed to the patient and referring care provider. Electronically signed by: Evaristo Vines MD 08/05/2020 4:44 PM CDT
== END ==
LOC: MAMMO 14:00
PROVIDERS: ATTEND Family Medicine
DX: R92.2 Inconclusive mammogram (principal)
CPT/HCPCS: 76641; 77065; G0279

== ENCOUNTER 2020-10-15 16:55 | Emergency (ER) | payer MEDICARE, OTHER ==
--- NOTE | 2020-10-15 17:38 | RAD ---
EXAM DESCRIPTION: Chest,1 View CLINICAL HISTORY: 65 years Female COVID 19 COMPARISON: 11/01/2019 FINDINGS: Heart size and mediastinal contour within normal limits. No pleural fluid or pneumothorax. There is groundglass density in the right upper lobe. Findings may reflect developing pneumonia. Left lung appears clear. IMPRESSION: Nonspecific groundglass opacity in the right upper lobe. Developing pneumonia is not excluded. Electronically signed by: Marcia Thompson MD 10/15/2020 5:36 PM [employer]EL[employer]
[2020-10-15] MEDS ORDERED: ACETAMINOPHEN 500 MG TAB PO ONE (18:06)
--- NOTE | 2020-10-15 18:18 | ED.PDOC ---
History of Present Illness - General Chief Complaint: Fever Stated Complaint: fever, cough Time Seen by Provider: 10/15/20 16:56 Source: patient Exam Limitations: no limitations, clinical condition - History of Present Illness Comments: PATIENT PRESENTS WITH 3-4 DAYS HX OF COUGH, NOW FEVER AT HOME, DOES NOT COMPLAIN OF ANY SOB, SATURATIONS 94% AND HIGHER ON RA ON PRESENTATION. PRIMARY CONCERN FOR HER IS THAT SHE WANTS TO BE TESTED FOR COVID, HER HAS HAD SEVERE COVID AND HAS BEEN AT A HOSPITAL INTERMITTENTLY IN THE ICU FOR WEEKS. SHE DOES HAVE HIGH RISK FACTORS FOR SEVERE DISEASE, DM AND HYPERTENSION. SHE TESTED NEGATIVE FOR COVID 3 DAYS AGO, SHE HAS RECENTLY VISITED HER BUT WAS WEARING FULL PPE. Cough Quality/Degree: dry cough Possible Cause: no prior episodes Improving Factors: nothing Worsening Factors: nothing Associated Symptoms: cough, fever/chills, headache, lightheadedness Allergies/Adverse Reactions: Allergies NO KNOWN ALLERGY Allergy (Verified 10/15/20 17:22) Home Medications: Ambulatory Orders Amlodipine Besylate 5 mg PO BEDTIME 03/31/17 Metformin HCl [Metformin Hydrochloride] 500 mg PO DAILY@0700 03/31/17 Thyroid [Art Objects Repairer Thyroid 30] 30 mg PO DAILY@0700 03/31/17 Amoxicillin & Pot Clavulanate [Augmentin Tab] 875 mg PO BID #14 tab 02/04/19 [place]-3 Fatty Acids [Fish Oil] 1,200 mg PO DAILY 02/04/19 predniSONE [Prednisone] 20 mg PO DAILY #3 tab 02/04/19 Albuterol Sulfate [Albuterol Sulfate Hfa] 108 mcg IN Q4H PRN #1 aer 10/15/20 Azithromycin [Zithromax] 500 mg PO DAILY #4 tab 10/15/20 Spacer/Aerosol-Holding Chamber [Aerochamber Plus Flow-Vu] 1 mis XX Q4H #1 mis 10/15/20 predniSONE 20 mg PO DAILY #10 tab 10/15/20 Review of Systems - Review of Systems Constitutional: States: see HPI, chills, fever, weakness EENTM: States: nose congestion Respiratory: States: cough, short of breath Cardiology: States: chest pain Gastrointestinal/Abdominal: States: no symptoms reported Genitourinary: States: no symptoms reported Musculoskeletal: States: no symptoms reported Skin: States: no symptoms reported Neurological: States: no symptoms reported Endocrine: States: no symptoms reported Hematologic/Lymphatic: States: no symptoms reported Past Medical History (General) - Patient Medical History Hx Stroke: No Hx Congestive Heart Failure: No Hx Hypertension: Yes Hx Thyroid Disease: Yes Hx Diabetes: Yes Hx Gastroesophageal Reflux: - Hx diverticulitis Hx MRSA: Yes MRSA Source:: Blood Surgical History: no surgical history - Vaccination History Hx Influenza Vaccination: No Hx Pneumococcal Vaccination: Yes - 2018 - Social History Hx Tobacco Use: Yes - Quit around 1979 Hx Alcohol Use: No - Activities of Daily Living Hospice Agency (if applicable):: None - Female History Patient is a Female of Child Bearing Age (10 -59 yrs old): No Family Medical History - Family History Mother Living Status: Age at (years of age): 86 Cause of : [place] Hx Family Diabetes: Yes Hx Family;Other: Diverticulosis Physical Exam - Physical Exam General Appearance: Agitated, Alert, Anxious ENT Exam: normal ENT inspection, hearing grossly normal, TMs normal, pharynx normal, nasal congestion Neck: non-tender, full range of motion, supple, normal inspection Respiratory: lungs clear, normal breath sounds, no respiratory distress, no accessory muscle use Cardiovascular/Chest: normal peripheral pulses, regular rate, rhythm, no edema Gastrointestinal/Abdominal: normal bowel sounds, non tender, soft, no organomegaly, no pulsatile mass Extremity: normal range of motion, non-tender, normal inspection Neurologic: alert, normal mood/affect, oriented x 3 Skin Exam: normal color, warm/dry Progress - Progress Progress: 10/15/20 18:16 PATIENT WITH MULTIPLE NEGATIVE COVID TEST, HOWEVER, STILL SUSPECT COVID-19 A POSSIBILITY, FEVER, INFILTRATE ON CXR, ELEVATED D-DIMER, NOT A CANDIDATE FOR BAM DUE TO NEGATIVE COVID TEST, I FEEL THIS PATIENT LIKELY HAS COVID AND WOULD VERY MUCH LIKE TO BE ABLE TO OFFER HER BAMLANIVIMAB, BUT THE EUA IS CLEAR, THAT A POSITIVE COVID TEST IS REQUIRED TO OFFER THE THERAPY. WE HAVE PERFORMED THE MORE SENSITIVE PCR AND ADVISED THE PATIENT TO CHECK RESULT DAILY UNTIL AVAILABLE. Departure - Departure Clinical Impression: Community acquired bacterial pneumonia Time of Disposition: 20:00 Disposition: Discharge to Home or Self Care Condition: Good Departure Forms: ED Discharge - Pt. Copy, Patient Portal Self Enrollment Instructions: Pneumonia in Adults Referrals: BRADLEY BORREGO MD [Primary Care Provider] - 1-2 Weeks Prescriptions: Spacer/Aerosol-Holding Chamber [Aerochamber Plus Flow-Vu] 1 mis XX Q4H #1 mis Albuterol Sulfate [Albuterol Sulfate Hfa] 108 mcg IN Q4H PRN #1 aer PRN Reason: COUGH, SOB, WHEEZE. predniSONE 20 mg PO DAILY #10 tab Azithromycin [Zithromax] 500 mg PO DAILY #4 tab Home Medications: Ambulatory Orders Amlodipine Besylate 5 mg PO BEDTIME 03/31/17 Metformin HCl [Metformin Hydrochloride] 500 mg PO DAILY@0700 03/31/17 Thyroid [Art Objects Repairer Thyroid 30] 30 mg PO DAILY@69903/31/17 Amoxicillin & Pot Clavulanate [Augmentin Tab] 875 mg PO BID #14 tab 02/04/19 [place]-3 Fatty Acids [Fish Oil] 1,200 mg PO DAILY 02/04/19 predniSONE [Prednisone] 20 mg PO DAILY #3 tab 02/04/19 Albuterol Sulfate [Albuterol Sulfate Hfa] 108 mcg IN Q4H PRN #1 aer 10/15/20 Azithromycin [Zithromax] 500 mg PO DAILY #4 tab 10/15/20 Spacer/Aerosol-Holding Chamber [Aerochamber Plus Flow-Vu] 1 mis XX Q4H #1 mis 10/15/20 predniSONE 20 mg PO DAILY #10 tab 10/15/20 Additional Instructions: PLEASE FOLLOW UP WITH YOUR DOCTOR DAILY UNTIL RESULTS OF TEST AVAILABLE. RECOMMEND OUTPATIENT BAMLANIVIMAB NIKKI IF TEST TURNS POSITIVE .
[2020-10-15 19:14] VITALS: TEMP 98.5; O2SAT 92
--- NOTE | 2020-10-15 19:16 | CT ---
PROCEDURE: CT Angiography Chest With Intravenous Contrast CLINICAL INDICATION: The patient is 65 years old and is Female; SOB, ELEVATED D-DIMER. TECHNIQUE: Axial computed tomographic angiography images of the chest with intravenous contrast. This CT exam was performed using one or more of the following dose reduction techniques: automated exposure control, adjustment of the mA and/or kV according to patient size, and/or use of iterative reconstruction technique. MIP reconstructed images were created and reviewed. Oblique reformatted images were created and reviewed. DLP: 663 mGy*cm CONTRAST: 100mL of Optiray 320 was administered intravenously. COMPARISON: Chest radiograph of the same day. FINDINGS: PULMONARY ARTERIES: Unremarkable. No pulmonary embolism. AORTA: No acute findings. No thoracic aortic aneurysm. LUNGS: Scattered groundglass opacities predominantly in the right apical lung zone and left upper lobe. Bibasilar scarring. PLEURAL SPACE: Unremarkable. No significant effusion. No pneumothorax. HEART: Unremarkable. No cardiomegaly. No significant pericardial effusion. No evidence of RV dysfunction. MEDIASTINUM: Small hiatal hernia. BONES/JOINTS: Diffuse osteopenia. Multilevel degenerative changes. No acute fracture. No dislocation. SOFT TISSUES: Unremarkable. LYMPH NODES: Unremarkable. No enlarged lymph nodes. LIVER: Diffuse hepatic steatosis. IMPRESSION: 1. No pulmonary embolism. 2. Imaging features can be seen with COVID-19 pneumonia, though are nonspecific and can occur with a variety of infectious and noninfectious processes. PneInd 3. Diffuse hepatic steatosis. 4. Small hiatal hernia. Electronically signed by: Lonnie Haley DO 10/15/2020 7:15 PM [facility]
[2020-10-15] MEDS ORDERED: AZITHROMYCIN 250 MG TAB PO ONE (19:23)
[2020-10-15] MEDS ORDERED: ALBUTEROL INH (ER DISPENSE) 1 EA INH INH ONE (19:29)
[2020-10-15] MEDS ORDERED: predniSONE 20 MG TAB PO ONE (19:29)
[2020-10-15 19:35] VITALS: BP 115/77
[2020-10-15] MEDS ORDERED: ALBUTEROL INHALER 64 PUFF/8GM INH ONE (19:43)
== END 2020-10-15 19:59 | disposition home or self-care (01) ==
LOC: ER 16:55
DX: J15.9 Unspecified bacterial pneumonia (principal); I10 Essential (primary) hypertension; E07.9 Disorder of thyroid, unspecified; E11.9 Type 2 diabetes mellitus without complications; Z20.828 Contact with and (suspected) exposure to other viral communicable diseases; Z87.891 Personal history of nicotine dependence; Z79.899 Other long term (current) drug therapy; Z79.84 Long term (current) use of oral hypoglycemic drugs
CPT/HCPCS: 36415; 71045; 71275; 80053; 85025; 85379; 86140; 87635; J7512; Q0144

== ENCOUNTER → 2020-11-03 | Outpatient (CLI) | payer MEDICARE, OTHER | LOC: GMAE 11:55 | PROVIDERS: ATTEND Family Medicine | DX: E03.9 Hypothyroidism, unspecified (principal); I10 Essential (primary) hypertension; E11.9 Type 2 diabetes mellitus without complications ==